=== PATIENT | female | born 1980 | race Caucasian/White ===

== ENCOUNTER 2017-06-20 08:00 | Outpatient (CLI) | payer OTHER | END 2017-06-20 08:01 | disposition home or self-care (01) | LOC: LAB.WCP 08:00 | PROVIDERS: ATTEND Physician Assistant Medical | DX: Z71.89 Other specified counseling (principal) | CPT/HCPCS: 36415; 86317 ==

== ENCOUNTER 2017-11-02 07:00 | Outpatient (CLI) | payer OTHER ==
[2017-11-02 12:23] LABS: ALBUMIN 3.8 g/dL (3.2-5.5); ALBUMIN/GLOBULIN RATIO 1.3 (1.0-2.2); ALKALINE PHOSPHATASE 34 IU/L (42-121); ALT ALANINE AMINOTRANSFERASE 37 IU/L (10-60); AST ASPARTATE AMINOTRANSFERASE 21 IU/L (10-42); BILIRUBIN,TOTAL 1.5 mg/dL (0.2-1.0); BUN - BLOOD UREA NITROGEN 11 mg/dL (6-20); CALCIUM 8.7 mg/dL (8.5-10.3); CARBON DIOXIDE - CO2 25 mmol/L (21-32); CHLORIDE 104 mmol/L (101-111); CHOL/HDL RATIO 4.3 (<4.4); CHOLESTEROL 167 mg/dL; CREATININE 0.6 mg/dL (0.4-1.0); GFR - MDRD 114 (>89); GLUCOSE 109 mg/dL (70-100); HDL CHOLESTEROL 39 mg/dL; LDL CHOLESTEROL,CALCULATED 111 mg/dL; LDL/HDL RATIO 2.8 (<4.4); SODIUM 137 mmol/L (135-145); TOTAL PROTEIN 6.8 g/dL (6.7-8.2); VLDL CHOLESTEROL 17 mg/dL
[2017-11-02 12:27] LABS: BASOPHILS % (AUTO) 0.4 %; EOSINOPHILS # (AUTO) 0.1 10^3/uL (0.0-0.7); EOSINOPHILS % (AUTO) 2.3 %; HGB - HEMOGLOBIN 14.3 g/dL (12.0-16.0); LYMPHOCYTES # (AUTO) 2.2 10^3/uL (1.5-3.5); LYMPHOCYTES % (AUTO) 38.2 %; MEAN CORPUSCULAR HGB CONC 35.1 g/dL (32.0-36.0); MEAN CORPUSCULAR VOLUME 85.6 fL (81.0-99.0); MEAN PLATELET VOLUME 8.9 fL (7.9-10.8); MONOCYTES # (AUTO) 0.4 10^3/uL (0.0-1.0); MONOCYTES % (AUTO) 7.6 %; NEUTROPHILS % (AUTO) 51.5 %; PLT - PLATELET COUNT 194 10^3/uL (130-450); RED BLOOD COUNT 4.77 10^6/uL (4.20-5.40); RED CELL DISTRIBUTION WIDTH 12.6 % (12.0-15.0); WHITE BLOOD COUNT 5.9 x10^3/uL (4.8-10.8)
== END 2017-11-02 07:01 ==
LOC: LAB.WCP 07:00
PROVIDERS: ATTEND Physician Assistant Medical
DX: Z00.00 Encounter for general adult medical examination without abnormal findings (principal)
CPT/HCPCS: 36415; 80053; 80061; 83721; 84443; 85025

== ENCOUNTER 2017-11-09 07:45 | Outpatient (CLI) | payer OTHER ==
--- NOTE | 2017-11-09 11:34 | Ultrasound Report ---
Reason: SPOTTING Procedure Date: 11/09/2017 Accession Number: [id number] / [id number] Procedure: US - Pelvic w/Transvaginal CPT Code: FULL RESULT: EXAM: PELVIC ULTRASOUND EXAM DATE: 11/09/2017 07:58 AM. CLINICAL HISTORY: SPOTTING. History of section. Mirena IUD in place. COMPARISON: None. TECHNIQUE: Realtime transabdominal pelvic scan performed to identify the uterus and adnexa and as an overview of other pelvic structures, followed by transvaginal scan to provide greater detail of the uterus and adnexa, with static image documentation. FINDINGS: Uterus: 12.1 x 5.1 x 3.6 cm, volume 116.1 cc. Anteverted position. Normal overall size and echotexture. Masses: Focal bulge along the anterior lower uterine segment wall likely related to prior section versus possible fibroid. Endometrium: 6.6 mm. Normal. A portion of the IUD can be seen in the lower uterine segment. However the IUD cannot be definitely seen extending into the uterine fundus. Cervix: Unremarkable. Right Ovary: 4.3 x 2.7 x 2.5 cm, volume 15.1 cc. Normal echotexture and blood flow. 1.6 x 2.5 x 1.5 cm cyst. Left Ovary: 2.4 x 2.2 x 1.6 cm, volume 4.4 cc. Normal echotexture and blood flow. Free Fluid: None. Other: None. IMPRESSION: 1. Focal bulge anterior wall lower uterine segment, question secondary to prior section versus fibroid. 2. An IUD is present in the lower uterine segment. It cannot definitely be seen extending into the fundal endometrium canal. Thus the IUD positioning is uncertain. RADIA
== END 2017-11-09 07:46 | disposition home or self-care (01) ==
LOC: DI 07:45
PROVIDERS: ATTEND Physician Assistant Medical
DX: N92.0 Excessive and frequent menstruation with regular cycle (principal); N85.9 Noninflammatory disorder of uterus, unspecified; Z97.5 Presence of (intrauterine) contraceptive device
CPT/HCPCS: 76830; 76856

== ENCOUNTER 2018-08-16 12:00 | Outpatient (CLI) | payer OTHER ==
--- NOTE | 2018-08-16 16:46 | XRAY Report ---
Reason: CONTUSION OF LEFT HAND,INITIAL ENCOUNTER Procedure Date: 08/16/2018 Accession Number: [id number] / [id number] Procedure: WCP - Hand 3 View LT CPT Code: FULL RESULT: EXAM: LEFT HAND RADIOGRAPHY EXAM DATE: 08/16/2018 12:13 PM. CLINICAL HISTORY: CONTUSION OF LEFT HAND,INITIAL ENCOUNTER. COMPARISON: None. TECHNIQUE: 3 views. FINDINGS: Bones: Normal. No fractures or bone lesions. Joints: Normal. No subluxations. Soft Tissues: Normal. No soft tissue swelling. IMPRESSION: Normal hand radiography. RADIA
== END 2018-08-16 12:01 | disposition home or self-care (01) ==
LOC: DI.WCP 12:00
PROVIDERS: ATTEND Family Medicine
DX: S60.222A Contusion of left hand, initial encounter (principal)

== ENCOUNTER 2019-10-31 07:45 | Outpatient (CLI) | payer OTHER ==
[2019-10-31 11:44] LABS: BASOPHILS % (AUTO) 0.7 %; EOSINOPHILS # (AUTO) 0.1 10^3/uL (0.0-0.7); EOSINOPHILS % (AUTO) 2.2 %; HGB - HEMOGLOBIN 14.3 g/dL (12.0-16.0); LYMPHOCYTES % (AUTO) 37.2 %; MEAN CORPUSCULAR HEMOGLOBIN 29.2 pg (27.0-31.0); MEAN CORPUSCULAR HGB CONC 33.6 g/dL (32.0-36.0); MEAN CORPUSCULAR VOLUME 87.1 fL (81.0-99.0); MEAN PLATELET VOLUME 10.6 fL (7.9-10.8); MONOCYTES # (AUTO) 0.4 10^3/uL (0.0-1.0); MONOCYTES % (AUTO) 7.1 %; NEUTROPHILS # (AUTO) 2.8 10^3/uL (1.5-6.6); NEUTROPHILS % (AUTO) 52.2 %; PLT - PLATELET COUNT 230 10^3/uL (130-450); RED BLOOD COUNT 4.89 10^6/uL (4.20-5.40); RED CELL DISTRIBUTION WIDTH 11.9 % (12.0-15.0); WHITE BLOOD COUNT 5.4 x10^3/uL (4.8-10.8)
[2019-10-31 11:52] LABS: ALBUMIN/GLOBULIN RATIO 1.3 (1.0-2.2); ALKALINE PHOSPHATASE 35 IU/L (42-121); ALT ALANINE AMINOTRANSFERASE 42 IU/L (10-60); AST ASPARTATE AMINOTRANSFERASE 25 IU/L (10-42); BILIRUBIN,TOTAL 0.8 mg/dL (0.2-1.0); BUN - BLOOD UREA NITROGEN 12 mg/dL (6-20); CARBON DIOXIDE - CO2 24 mmol/L (21-32); CHLORIDE 107 mmol/L (101-111); CHOLESTEROL 199 mg/dL; CREATININE 0.7 mg/dL (0.4-1.0); GLUCOSE 124 mg/dL (70-100); HDL CHOLESTEROL 50 mg/dL; LDL CHOLESTEROL,CALCULATED 130 mg/dL; LDL/HDL RATIO 2.6 (<4.4); MAGNESIUM 1.9 mg/dL (1.7-2.8); SODIUM 136 mmol/L (135-145); VLDL CHOLESTEROL 19 mg/dL
[2019-10-31 11:58] LABS: THYROID STIMULATING HORMONE 2.32 uIU/mL (0.34-5.60)
== END 2019-10-31 23:59 | disposition home or self-care (01) ==
LOC: LAB.WCP 07:45
PROVIDERS: ATTEND Physician Assistant Medical
DX: Z00.00 Encounter for general adult medical examination without abnormal findings (principal)
CPT/HCPCS: 36415; 80053; 80061; 82607; 83721; 83735; 84443; 85025

== ENCOUNTER 2019-11-01 08:00 | Outpatient (CLI) | payer OTHER | END 2019-11-01 23:59 | disposition home or self-care (01) | LOC: LAB.WCP 08:00 | PROVIDERS: ATTEND Physician Assistant Medical | DX: G25.0 Essential tremor (principal); R60.9 Edema, unspecified | CPT/HCPCS: 36415; 82525 ==

== ENCOUNTER 2020-02-11 16:00 | Emergency (ER) | payer OTHER ==
[2020-02-11] MEDS ORDERED: HYDROmorphone 1 MG/ML CARPUJECT IVP STA (16:14)
[2020-02-11] MEDS ORDERED: ONDANSETRON 4 MG/2 ML VIAL IVP STA (16:14)
--- NOTE | 2020-02-11 16:16 | ED Physician Documentation ---
PD HPI ABD PAIN - Stated complaint Stated Complaint: RT SIDE PX - Chief complaint Chief Complaint: Abd Pain - History obtained from History obtained from: Patient - Additional information Additional information: 31-year-old woman who has had recurrent issues with right upper quadrant pain. In 2017 she had this worked up with upper endoscopy that showed some mild reactive changes in the distal esophagus and a HIDA scan that was negative per her. She gets it every so often. Today she woke up with it at 3 AM. Its of burning pain in the right upper quadrant radiating to the right upper for back. Its severe today and worst it has ever been. She was referred here from urgent care for further evaluation and treatment. She has had 2 C-sections in the past. She notes an ancillary complaints of feeling like her scar is ripping over when she coughs or sneezes. 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 HEENT: Tonsil/Adenoidectomy - Present Medications Home Medications: Ambulatory Orders Medication Instructions Recorded Confirmed HYDROcod/ACETAM 5/325 [[place] 5/325] 1 - 2 tab PO Q6H PRN #15 tablet 02/11/20 - Allergies Allergies/Adverse Reactions: Allergies Allergy/AdvReac Type Severity Reaction Status Date / Time Penicillins Allergy Anaphylaxis Verified 02/11/20 16:05 PD ED PE NORMAL - Vitals Vital signs reviewed: Yes - General General: Alert and oriented X 3, No acute distress - HEENT HEENT: PERRL, EOMI - Neck Neck: Supple, no meningeal sign, No bony TTP - Cardiac Cardiac: RRR, No murmur - Respiratory Respiratory: No respiratory distress, Clear bilaterally - Abdomen Abdomen: Normal bowel sounds, Soft, Other (Tenderness in the right upper quadrant with positive Cruz sign, no shingles rash there or on the back.) - Back Back: No CVA TTP, No spinal TTP - Derm Derm: Normal color, Warm and dry - Extremities Extremities: No edema, No calf tenderness / cord - Neuro Neuro: Alert and oriented X 3, Normal speech Results - Vitals Vitals: Vital Signs - 24 hr 02/11/20 02/11/20 16:02 18:04 Temperature 36.3 C L Heart Rate 76 69 Respiratory 20 18 Rate Blood Pressure 133/89 H 118/68 O2 Saturation 100 100 Oxygen O2 Source Room air - Labs Labs: Laboratory Tests 02/11/20 02/11/20 02/11/20 16:35 16:41 16:41 WBC 7.3 RBC 4.86 Hgb 14.7 Hct 41.5 MCV 85.4 MCH 30.2 MCHC 35.4 RDW 11.9 L Plt Count 201 MPV 10.3 Neut # (Auto) 3.7 Lymph # (Auto) 2.8 [place] # (Auto) 0.6 Eos # (Auto) 0.1 Baso # (Auto) 0.1 Absolute Nucleated RBC 0.00 Nucleated RBC % 0.0 Sodium 135 Potassium 3.5 Chloride 104 Carbon Dioxide 19 L Anion Gap 12.0 BUN 9 Creatinine 0.6 Estimated GFR (MDRD) 112 Glucose 93 Calcium 9.0 Total Bilirubin 1.2 H AST 24 ALT 44 Alkaline Phosphatase 33 L Total Protein 7.0 Albumin 4.1 Globulin 2.9 Albumin/Globulin Ratio 1.4 Lipase 27 Urine Color YELLOW Urine Clarity CLOUDY Urine pH 5.5 Ur Specific [place] 1.025 Urine Protein NEGATIVE Urine Glucose (UA) NEGATIVE Urine Ketones NEGATIVE Urine Occult Blood TRACE-INTA Urine Nitrite NEGATIVE Urine Bilirubin NEGATIVE Urine Urobilinogen 0.2 (NORMAL) Ur Leukocyte Esterase MODERATE H Urine RBC 0-5 Urine WBC 6-10 H Ur Squamous Epith Cells MOD Squamous H Urine Bacteria Few Ur Microscopic Review INDICATED Urine Culture Comments NOT INDICATED Urine HCG, Qual NEGATIVE PD MEDICAL DECISION MAKING - ED course ED course: 39-year-old woman presents with recurrent unexplained abdominal pain, today is the worst she is ever had. She has had a pretty thorough work-up in the past although has not been seen recently for this. She had an ultrasound showing fatty liver, this was followed by a CT confirming the fatty liver and also showing a 2 cm right ovarian cyst which I do not think is the source of the pain. She was feeling better after meds here. We discussed the findings and need for follow-up with both gynecology as well as GI. 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 He may want to repeat an ultrasound in approximately 6 weeks to make sure that the 2 cm right ovarian cyst has resolved. Also reconsult with your body and fender mechanic apprentice. Return anytime if worsening or if new symptoms develop.
[2020-02-11 16:55] LABS: BILIRUBIN,URINE NEGATIVE (NEGATIVE); GLUCOSE, URINE (UA) NEGATIVE (NEGATIVE); KETONES,URINE (UA) NEGATIVE (NEGATIVE); LEUKOCYTE ESTERASE, URINE MODERATE (NEGATIVE); NITRITE,URINE NEGATIVE (NEGATIVE); OCCULT BLOOD,URINE TRACE-INTA (NEGATIVE); PH,URINE 5.5 PH (5.0-7.5); PROTEIN,URINE NEGATIVE (NEGATIVE); UROBILINOGEN,URINE 0.2 (NORMAL) E.U./dL (NORMAL)
[2020-02-11 16:57] LABS: CLARITY,URINE CLOUDY (CLEAR); HCG UR QUAL NEGATIVE
[2020-02-11 16:57] LABS: BASOPHILS # (AUTO) 0.1 10^3/uL (0.0-0.1); BASOPHILS % (AUTO) 0.7 %; EOSINOPHILS # (AUTO) 0.1 10^3/uL (0.0-0.7); EOSINOPHILS % (AUTO) 1.6 %; HGB - HEMOGLOBIN 14.7 g/dL (12.0-16.0); LYMPHOCYTES # (AUTO) 2.8 10^3/uL (1.5-3.5); MEAN CORPUSCULAR HEMOGLOBIN 30.2 pg (27.0-31.0); MEAN CORPUSCULAR HGB CONC 35.4 g/dL (32.0-36.0); MEAN CORPUSCULAR VOLUME 85.4 fL (81.0-99.0); MEAN PLATELET VOLUME 10.3 fL (7.9-10.8); MONOCYTES # (AUTO) 0.6 10^3/uL (0.0-1.0); MONOCYTES % (AUTO) 7.5 %; NEUTROPHILS # (AUTO) 3.7 10^3/uL (1.5-6.6); NEUTROPHILS % (AUTO) 50.4 %; PLT - PLATELET COUNT 201 10^3/uL (130-450); RED BLOOD COUNT 4.86 10^6/uL (4.20-5.40); RED CELL DISTRIBUTION WIDTH 11.9 % (12.0-15.0); WHITE BLOOD COUNT 7.3 x10^3/uL (4.8-10.8)
[2020-02-11 17:07] LABS: ALBUMIN 4.1 g/dL (3.2-5.5); ALBUMIN/GLOBULIN RATIO 1.4 (1.0-2.2); BILIRUBIN,TOTAL 1.2 mg/dL (0.2-1.0); CREATININE 0.6 mg/dL (0.4-1.0)
[2020-02-11 17:15] LABS: BACTERIA,URINE Few /HPF (None Seen); RBC,URINE 0-5 /HPF (0-5); SQUAMOUS EPITHELIAL CELL,UR MOD Squamous (<= Few)
[2020-02-11] MEDS ORDERED: IOVERSOL 320 100 ML VIAL IVP ONE ×2 (17:23→17:49)
--- NOTE | 2020-02-11 17:28 | Ultrasound Report ---
PROCEDURE: Abdomen Limited INDICATIONS: RUQ pain TECHNIQUE: Real-time focused scanning was performed of the abdomen, with image documentation. COMPARISON: None. FINDINGS: Liver is enlarged and measures 21.2 cm in length. Diffusely increased liver parenchymal echotexture i s seen consistent with hepatic steatosis. No discrete hepatic lesion is seen. There is no gallstone. No gallbladder wall thickening or pericholecystic fluid. No sonographic Cruz 's sign. There is no intrahepatic biliary ductal dilatation. Common bile duct measures up to 5 mm in diameter and is within normal limits. Visualized portion of pancreas shows mildly increased pancreatic parenchymal echotexture. No discrete pancreatic lesion or peripancreatic fluid. Right kidney measures 12 cm in length. There is no hydronephrosis or nephrolithiasis. IMPRESSION: 1. Hepatomegaly and hepatic steatosis. 2. Normal-appearing gallbladder. No sonographic evidence of acute cholecystitis. 3. No biliary ductal dilatation. Reviewed by: Gabriel Thomas MD on 02/11/2020 4:27 PM [facility] Approved by: Gabriel Thomas MD on 02/11/2020 4:27 PM [facility] Station ID: [id number]
--- NOTE | 2020-02-11 18:05 | CT Report ---
PROCEDURE: Abdomen/Pelvis W INDICATIONS: IV only, RUQ pain CONTRAST: IV CONTRAST: Optiray 320 ml: 100 PO CONTRAST: *NO PO CONTRAST TECHNIQUE: After the administration of IV contrast, 5 mm thick sections acquired from the diaphragms to the symp hysis. 5 mm thick coronal and sagittal reformats were acquired. For radiation dose reduction, the f ollowing was used: automated exposure control, adjustment of mA and/or kV according to patient size. COMPARISON: Limited ultrasound of abdomen from the same date. FINDINGS: Image quality: Excellent. ABDOMEN: Lung bases: Lung bases are clear. Heart size is normal. Solid organs: There is hepatomegaly and hepatic steatosis. No discrete hepatic lesion is seen. Spleen shows normal size and enhancement. Gallbladder is within normal limits. Biliary system is non dilat ed. Pancreas enhances normally. No adrenal nodules. Kidneys demonstrate normal size and enhancemen t, without hydronephrosis. Peritoneum and bowel: There is a small hiatal hernia. Bowel loops demonstrate normal wall thickness a nd caliber. No free fluid or air. Appendix is visualized and is within normal limits. Nodes and vessels: No retroperitoneal or mesenteric adenopathy by size criteria. Aorta and inferior vena cava are normal in size. Miscellaneous: No ventral hernias. PELVIS: Genitourinary: Bladder wall thickness is normal. Miscellaneous: No inguinal hernias or adenopathy. Uterus and left adnexa shows no gross abnormality. 2 cm cystic area is noted in right adnexa and may represent right ovarian cyst. Bones: No suspicious bony lesions. No vertebral body compression fractures. IMPRESSION: 1. Hepatic steatosis and hepatomegaly. No discrete hepatic lesion. 2. No bowel obstruction. Normal appendix. No abnormal bowel wall thickening. No free fluid of free ai r. Small hiatal hernia. 3. 2 cm right ovarian cyst. Reviewed by: Gabriel Thomas MD on 02/11/2020 5:04 PM [facility] Approved by: Gabriel Thomas MD on 02/11/2020 5:04 PM [facility] Station ID: [id number]
[2020-02-11 18:21] VITALS: BP 118/68
== END 2020-02-11 18:35 | disposition home or self-care (01) ==
LOC: ED 16:00
DX: R10.11 Right upper quadrant pain (principal); M54.6 Pain in thoracic spine; N83.201 Unspecified ovarian cyst, right side; K76.0 Fatty (change of) liver, not elsewhere classified; K44.9 Diaphragmatic hernia without obstruction or gangrene
CPT/HCPCS: 36415; 74177; 76705; 80053; 81001; 81025; 83690; 85025; 96374; 99284; J1170; Q9967; 81003; 87086

== ENCOUNTER 2020-05-27 09:17 | Outpatient (CLI) | payer OTHER ==
--- NOTE | 2020-05-29 13:16 | Mammography Report ---
BILATERAL DIGITAL DIAGNOSTIC MAMMOGRAM 3D/2D: 05/27/2020 CLINICAL: Baseline exam. Palpable right breast lump. Baseline exam. No prior exams were available for comparison. The tissue of both breasts is heterogen eously dense. This may lower the sensitivity of mammography. No significant masses, calcifications, or other findings are seen in either breast. IMPRESSION: INCOMPLETE: NEEDS ADDITIONAL IMAGING EVALUATION No mammographic evidence of malignancy. A targeted ultrasound of the right breast palpable abnormality is recommended and will immediately fo llow. This exam was interpreted at Station ID: [id number]. NOTE: For mammograms, a report in lay terms will be sent to the patient. Approximately 15% of breast malignancies will not be visualized mammographically. In the management of a palpable breast mass, a negative mammogram must not discourage biopsy of a clinically suspicious lesion. Electronically Signed By: Javed Crawley M.D. slc/:05/27/2020 11:10:50 ACR BI-RADS Category 0: Incomplete 3340F PARENCHYMAL PATTERN: (D) - The breast(s) demonstrate(s) heterogeneously dense fibroglandular beronica castro. BI-RADS CATEGORY: (0) - 0 Ultrasound [id number] Immediate follow-up LATERALITY: (B)
--- NOTE | 2020-05-29 13:16 | Ultrasound Report ---
LIMITED ULTRASOUND OF RIGHT BREAST: 05/27/2020 CLINICAL: Palpable right breast lump. Comparison is made to exam dated: 05/27/2020 mammogram - [facility]. Color flow and real-time ultrasound of the right breast 10-11 o'clock region were performed. Ch sc adeel images of the real-time examination were reviewed. No significant abnormalities were seen sonographically in the right breast. IMPRESSION: NEGATIVE There is no sonographic evidence of malignancy in the region of the right breast palpable abnormality . A 1 year screening mammogram is recommended. Exam findings were conveyed to the patient. Patient is advised to monitor for significant change. Cli nical follow-up as needed. This exam was interpreted at Station ID: [id number]. Electronically Signed By: Jvaed Crawley M.D. slc/:05/29/2020 12:40:50 Ultrasound BI-RADS: 1 Negative BI-RADS CATEGORY: (1) - 1 RECOMMENDATION: (ANNUAL) - Recommend routine annual screening mammography. [id number] 1 year screening LATERALITY: (B)
== END 2020-05-27 09:18 | disposition home or self-care (01) ==
LOC: DI 09:17
PROVIDERS: ATTEND Physician Assistant Medical
DX: N63.11 Unspecified lump in the right breast, upper outer quadrant (principal)

== ENCOUNTER 2021-02-05 08:00 | Outpatient (CLI) | payer OTHER ==
[2021-02-05 12:21] LABS: BASOPHILS % (AUTO) 0.6 %; EOSINOPHILS # (AUTO) 0.1 10^3/uL (0.0-0.7); EOSINOPHILS % (AUTO) 1.3 %; HCT - HEMATOCRIT 44.6 % (37.0-47.0); HGB - HEMOGLOBIN 14.9 g/dL (12.0-16.0); LYMPHOCYTES # (AUTO) 1.8 10^3/uL (1.5-3.5); LYMPHOCYTES % (AUTO) 26.5 %; MEAN CORPUSCULAR HGB CONC 33.4 g/dL (32.0-36.0); MEAN CORPUSCULAR VOLUME 86.9 fL (81.0-99.0); MEAN PLATELET VOLUME 10.2 fL (7.9-10.8); MONOCYTES # (AUTO) 0.5 10^3/uL (0.0-1.0); MONOCYTES % (AUTO) 6.9 %; NEUTROPHILS # (AUTO) 4.4 10^3/uL (1.5-6.6); PLT - PLATELET COUNT 228 10^3/uL (130-450); RED BLOOD COUNT 5.13 10^6/uL (4.20-5.40); RED CELL DISTRIBUTION WIDTH 11.8 % (12.0-15.0); WHITE BLOOD COUNT 6.9 x10^3/uL (4.8-10.8)
[2021-02-05 12:43] LABS: ESTIMATED AVERAGE GLUCOSE 97 mg/dL (70-100)
[2021-02-05 12:45] LABS: ALBUMIN 4.3 g/dL (3.2-5.5); ALBUMIN/GLOBULIN RATIO 1.3 (1.0-2.2); ALKALINE PHOSPHATASE 31 IU/L (42-121); ALT ALANINE AMINOTRANSFERASE 17 IU/L (10-60); AST ASPARTATE AMINOTRANSFERASE 12 IU/L (10-42); BUN - BLOOD UREA NITROGEN 14 mg/dL (6-20); CALCIUM 8.9 mg/dL (8.5-10.3); CARBON DIOXIDE - CO2 26 mmol/L (21-32); CHLORIDE 103 mmol/L (101-111); CHOLESTEROL 220 mg/dL; CREATININE 0.7 mg/dL (0.4-1.0); GFR - MDRD 93 (>89); GLUCOSE 107 mg/dL (70-100); HDL CHOLESTEROL 55 mg/dL; LDL CHOLESTEROL,CALCULATED 152 mg/dL; LDL/HDL RATIO 2.8 (<4.4); SODIUM 136 mmol/L (135-145); TOTAL PROTEIN 7.5 g/dL (6.7-8.2); TRIGLYCERIDES 65 mg/dL; VLDL CHOLESTEROL 13 mg/dL
[2021-02-05 13:02] LABS: THYROID STIMULATING HORMONE 1.37 uIU/mL (0.34-5.60)
== END 2021-02-05 23:59 | disposition home or self-care (01) ==
LOC: LAB.WCP 08:00
PROVIDERS: ATTEND Physician Assistant Medical
DX: Z00.00 Encounter for general adult medical examination without abnormal findings (principal); M79.7 Fibromyalgia; G25.0 Essential tremor; R73.9 Hyperglycemia, unspecified
CPT/HCPCS: 36415; 80053; 80061; 82607; 83036; 83721; 84443; 85025

== ENCOUNTER 2021-02-13 15:32 | Outpatient (CLI) | payer OTHER ==
--- NOTE | 2021-02-16 08:44 | Ultrasound Report ---
PROCEDURE: Pelvic w/Transvaginal INDICATIONS: OVARIAN CYST TECHNIQUE: Real-time scanning was performed of the pelvic organs, with image documentation. Additional endovagi nal scanning was necessary due to incomplete visualization of the adnexal and endometrial structures by transabdominal scanning. COMPARISON: CT abdomen/pelvis 02/11/2020. Pelvic ultrasound 11/09/2017. FINDINGS: No pathologic free abdominal or pelvic fluid. Uterus: Uterus is retroverted and retroflexed, and is normal in size at 8.0 x 4.2 x 5.6 cm. The end ometrium measures 6 mm in combined thickness. Trace fluid is seen in the endocervical canal. Ovaries: The right ovary measures 3.4 x 1.5 x 2.5 cm (6 mL). The left ovary measures 4 x 1.8 x 2 cm (7 mL). A left ovarian follicle measures 1.6 x 1.0 x 0.9 cm. The previously seen 2 cm right ovarian c yst on CT has resolved. IMPRESSION: 1.No acute abnormality. 2.A left ovarian follicle measures up to 1.6 cm, which is considered physiologic in a premenopausal w jj. 3.Trace nonspecific fluid in the endocervical canal. Reviewed by: Buzz Briscoe MD on 02/16/2021 8:43 AM PST Approved by: Buzz Briscoe MD on 02/16/2021 8:43 AM PST Station ID: [id number]
== END 2021-02-13 15:33 | disposition home or self-care (01) ==
LOC: DI 15:32
PROVIDERS: ATTEND Physician Assistant Medical
DX: N83.201 Unspecified ovarian cyst, right side (principal)

== ENCOUNTER 2021-12-25 08:34 | Outpatient (CLI) | payer OTHER ==
[2021-12-25 12:28] LABS: BASOPHILS % (AUTO) 0.6 %; EOSINOPHILS # (AUTO) 0.1 10^3/uL (0.0-0.7); EOSINOPHILS % (AUTO) 1.4 %; HCT - HEMATOCRIT 43.2 % (37.0-47.0); HGB - HEMOGLOBIN 14.5 g/dL (12.0-16.0); LYMPHOCYTES # (AUTO) 1.9 10^3/uL (1.5-3.5); LYMPHOCYTES % (AUTO) 26.7 %; MEAN CORPUSCULAR HEMOGLOBIN 28.8 pg (27.0-31.0); MEAN CORPUSCULAR HGB CONC 33.6 g/dL (32.0-36.0); MEAN CORPUSCULAR VOLUME 85.7 fL (81.0-99.0); MEAN PLATELET VOLUME 10.5 fL (7.9-10.8); MONOCYTES # (AUTO) 0.5 10^3/uL (0.0-1.0); MONOCYTES % (AUTO) 7.4 %; NEUTROPHILS # (AUTO) 4.4 10^3/uL (1.5-6.6); NEUTROPHILS % (AUTO) 63.3 %; PLT - PLATELET COUNT 223 10^3/uL (130-450); RED BLOOD COUNT 5.04 10^6/uL (4.20-5.40); RED CELL DISTRIBUTION WIDTH 11.9 % (12.0-15.0); WHITE BLOOD COUNT 6.9 x10^3/uL (4.8-10.8)
[2021-12-25 13:14] LABS: ESTIMATED AVERAGE GLUCOSE 100 mg/dL (70-100); HEMOGLOBIN A1c% 5.1 % (4.27-6.07)
[2021-12-25 13:16] LABS: THYROID STIMULATING HORMONE 1.99 uIU/mL (0.34-5.60)
[2021-12-25 13:24] LABS: ALBUMIN 4.1 g/dL (3.2-5.5); ALBUMIN/GLOBULIN RATIO 1.4 (1.0-2.2); ALKALINE PHOSPHATASE 26 IU/L (42-121); ALT ALANINE AMINOTRANSFERASE 21 IU/L (10-60); AST ASPARTATE AMINOTRANSFERASE 16 IU/L (10-42); BILIRUBIN,TOTAL 1.1 mg/dL (0.2-1.0); BUN - BLOOD UREA NITROGEN 11 mg/dL (6-20); CALCIUM 9.4 mg/dL (8.5-10.3); CARBON DIOXIDE - CO2 24 mmol/L (21-32); CHLORIDE 106 mmol/L (101-111); CHOL/HDL RATIO 3.6 (<4.4); CHOLESTEROL 192 mg/dL; CREATININE 0.6 mg/dL (0.4-1.0); GFR - MDRD 111 (>89); GLUCOSE 107 mg/dL (70-100); HDL CHOLESTEROL 54 mg/dL; LDL CHOLESTEROL,CALCULATED 124 mg/dL; LDL/HDL RATIO 2.3 (<4.4); POTASSIUM 3.7 mmol/L (3.5-5.0); SODIUM 137 mmol/L (135-145); TRIGLYCERIDES 70 mg/dL; VLDL CHOLESTEROL 14 mg/dL
== END 2021-12-25 08:35 | disposition home or self-care (01) ==
LOC: LAB.N 08:34
PROVIDERS: ATTEND Physician Assistant Medical
DX: Z00.00 Encounter for general adult medical examination without abnormal findings (principal); R73.9 Hyperglycemia, unspecified
CPT/HCPCS: 36415; 80053; 80061; 83036; 83721; 84443; 85025